=== PATIENT | female | born 1950 | race Two or more races ===

== ENCOUNTER 2018-11-16 13:17 | Emergency (ER) | payer MEDICARE, BC ==
[~2018-11-16] VITALS: Ht 162.6 cm; Wt 57.2 kg
[2018-11-16 13:40] VITALS: BP 135/74
== END 2018-11-16 14:28 | disposition home or self-care (01) ==
LOC: ER 13:17
DX: H15.102 Unspecified episcleritis, left eye (principal); E04.9 Nontoxic goiter, unspecified; Z90.710 Acquired absence of both cervix and uterus; Z88.8 Allergy status to other drugs, medicaments and biological substances; Z60.2 Problems related to living alone

== ENCOUNTER 2020-04-08 00:44 | Inpatient (IN) | payer BC, MEDICARE ==
[~2020-04-08] VITALS: Ht 162.6 cm; Wt 59.9 kg
--- NOTE | 2020-04-08 01:17 | NUR ---
BLOOD COLLECTED AND SENT TO THE LAB WITH PICKING BELT OPERATOR FOR TESTING.
[2020-04-08 01:18] LABS: BASOPHILS # (AUTO) 0.1 /CMM (0.0-0.2); BASOPHILS % (AUTO) 1.2 % (0.0-2.0); EOSINOPHILS % (AUTO) 10.2 % (0.0-6.0); HEMATOCRIT 41 % (33-45); HEMOGLOBIN 13.4 g/dL (11.5-14.8); LYMPHOCYTES # (AUTO) 1.7 /CMM (0.8-4.8); LYMPHOCYTES % (AUTO) 34.2 % (20.0-44.0); MEAN CORPUSCULAR HGB CONC 32 g/dl (31.0-36.0); MEAN CORPUSCULAR VOLUME 90 fL (82-100); MONOCYTES # (AUTO) 0.6 /CMM (0.1-1.30); MONOCYTES % (AUTO) 11.1 % (2.0-12.0); NEUTROPHILS # (AUTO) 2.2 /CMM (1.8-8.9); NEUTROPHILS % (AUTO) 43.3 % (43.0-81.0); PLATELET COUNT (AUTO) 279 /CMM (150-450); RED BLOOD CELL COUNT(AUTO) 4.63 MIL/uL (4.0-5.2)
[2020-04-08 01:25] LABS: CALCIUM, SERUM 8.7 mg/dL (8.5-10.1); CARBON DIOXIDE 27 mmol/L (21-32); CHLORIDE 106 mmol/L (98-107); CREATININE 0.9 mg/dL (0.6-1.3); GLUCOSE 97 mg/dL (74-106); POTASSIUM 4.2 mmol/L (3.5-5.1); SODIUM SERUM 141 mmol/L (136-145); UREA NITROGEN, BLOOD 21 mg/dL (7-18)
[2020-04-08 01:38] LABS: ALANINE AMINOTRANSFERASE 20 U/L (12-78); ALBUMIN 3.4 g/dL (3.4-5.0); ALKALINE PHOSPHATASE 84 U/L (46-116); ASPARTATE AMINOTRANSFERASE 17 U/L (15-37); B-TYPE NATRIURETIC PEPTIDE 38 PG/ML (0-125); BILIRUBIN,DIRECT 0.1 mg/dL (0.0-0.2); BILIRUBIN,TOTAL 0.2 mg/dL (0.2-1.0); TOTAL PROTEIN, SERUM 7.2 g/dL (6.4-8.2)
--- NOTE | 2020-04-08 02:14 | NUR ---
ER SPOKE TO [facility] [place] REGARDING PT ADMISSION.
--- NOTE | 2020-04-08 02:16 | NUR ---
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 PATIENT IS AAOX4. NO SOB .BREATHING EVENLY AND UNLABORED ON ROOM AIR. CONNECTED TO THE MONITOR.
--- NOTE | 2020-04-08 02:25 | NUR ---
called lab for covid swab
[2020-04-08] MEDS ORDERED: ONDANSETRON HCL/PF 4 MG/2 ML VIAL IVP PRN (02:30)
[2020-04-08] MEDS ORDERED: MAG HYDROX/AL HYDROX/SIMETH 30 ML UDC PO PRN (02:30)
[2020-04-08] MEDS ORDERED: Z GUARD REMEDY 2 OZ OINT TP PRN (02:30)
[2020-04-08] MEDS ORDERED: HYDROCODONE/APAP 5/325MG TABLET PO PRN (02:30)
[2020-04-08] MEDS ORDERED: ASPIRIN 325 MG TABLET PO ONE (02:30)
[2020-04-08] MEDS ORDERED: ZOLPIDEM TARTRATE 5 MG TABLET PO PRN (02:30)
[2020-04-08] MEDS ORDERED: ACETAMINOPHEN 325 MG TABLET PO PRN (02:30)
[2020-04-08] MEDS ORDERED: MAGNESIUM HYDROXIDE 30 ML UDC PO PRN (02:30)
[2020-04-08] MEDS ORDERED: NITROGLYCERIN 0.4 MG/TAB BOTTLE SL PRN (02:30)
[2020-04-08] MEDS ORDERED: ASPIRIN 325 MG TABLET ONE (02:39)
--- NOTE | 2020-04-08 02:39 | NUR ---
Omari ray in [facility] - 04/08/20 at 0253 by PHOEBE BRETT Verdugo
--- NOTE | 2020-04-08 03:11 | NUR ---
per lab, covid negative.
--- NOTE | 2020-04-08 03:12 | NUR ---
TELE 104
--- NOTE | 2020-04-08 03:34 | NUR ---
REPORT CALLED TO ANA CRISTINA COSTELLO. WILL TRANSPORT PT VIA ACLS PROTOCOL.
--- NOTE | 2020-04-08 03:39 | NUR ---
PATIENT TAKEN TO ASSIGNED ROOM FOR ARIEL.
[2020-04-08 03:59] VITALS: BP 144/71
[2020-04-08 04:00] VITALS: BP 144/71
--- NOTE | 2020-04-08 06:41 | NUR ---
RN notes Admitted a 70 year old from ER via stretcher with diagnosis of chest pain to rule out ACS. No distress noted. On room air tolerating well. Alert and oriented, verbally able to communicate needs. No complaint of pain or discomfort. Skin intact. Vital signs wnl. Needs attended.Kept clean and dry. Endorsed to next shift for continuity of care.
--- NOTE | 2020-04-08 07:05 | NUR ---
RN OPENING NOTES RECEIVED PT AWAKE, A/O X4. ON ROOM AIR SATURATING @99%. NO SOB OR ANY RESPIRATORY DISTRESS NOTED AT THIS TIME. NO PAIN REPORTED AT THIS TIME. SR ON TELE MONITOR. AMBULATORY. SKIN IS INTACT. CARDIAC DIET. L AC #18 INTACT, PATENT AND FLUSHED. SAFETY MEASURES IMPLEMENTED. CALL LIGHT WITHIN REACH. BED LOCKED AND AT LOWEST POSITION WITH SIDE RAILS UP X2. WILL CONTINUE TO MONITOR
[2020-04-08 08:00] VITALS: BP 155/59
--- NOTE | 2020-04-08 08:40 | NUR ---
RN NOTES MD ORDERED CT ANGIO. CONSENT OBTAINED FROM PT.
[2020-04-08] MEDS ORDERED: METOPROLOL TARTRATE 50 MG TABLET PO ONE (08:45)
[2020-04-08] MEDS ORDERED: ASPIRIN 81 MG TAB.CHEW PO ONE (09:00)
[2020-04-08] MEDS ORDERED: ALPR2TAB7 PO (09:19)
[2020-04-08] MEDS ORDERED: QUET400T PO (09:19)
[2020-04-08] MEDS ORDERED: ALPRAZOLAM 1 MG TABLET PO PRN (09:30)
[2020-04-08] MEDS: QUETIAPINE FUMARATE 100 MG TABLET PO SCH ×2 (09:35→11:54)
[2020-04-08] MEDS ORDERED: IV NS 0.9% 250 ML IV ONE (10:01)
[2020-04-08] MEDS ORDERED: IOHEXOL-350 100 ML VIAL IV ONE (10:01)
[2020-04-08] MEDS ORDERED: CT SWABBABLE VALVE TRANS SET 1 EA INFUS.SET MC ONE (10:01)
--- NOTE | 2020-04-08 10:10 | NUR ---
RN NOTES PT BROUGHT TO SALES SERVICE EXECUTIVE FOR CT ANGIO. PT ON STABLE CONDITION. BP: 132/40, HR: 72.
[2020-04-08] MEDS ORDERED: NITROGLYCERIN 4.9 GM SPRAY ONE (10:23)
[2020-04-08 12:00] VITALS: BP 128/57
[2020-04-08 16:00] VITALS: BP 138/60
--- NOTE | 2020-04-08 19:01 | NUR ---
ANA CRISTINA MEDLEY PT BROUGHT BACK TO ROOM. PT STABLE. VS WNL. Addendum: 04/08/20 at 1902 by CHRISTIAN ZEPEDA RN BROUGHT BACK TO ROOM @ 1050AM
--- NOTE | 2020-04-08 19:02 | NUR ---
RN CLOSING NOTES PT DISCHARGED VIA WHEELCHAIR ACCOMPANIED BY RN TO ER PARKING LOT. DISCHARGE INSTRUCTIONS GIVEN TO PT. VS WNL. LEFT IN STABLE CONDITION
== END 2020-04-08 18:36 | disposition home or self-care (01) | DRG 313 ==
LOC: ER 00:48 → TELE1 03:26
PROVIDERS: ADMIT Internal Medicine; ATTEND Internal Medicine
DX: R07.89 Other chest pain (principal); N17.0 Acute kidney failure with tubular necrosis; I16.0 Hypertensive urgency; F32.9 Major depressive disorder, single episode, unspecified; F41.9 Anxiety disorder, unspecified; Z82.49 Family history of ischemic heart disease and other diseases of the circulatory system; Z90.710 Acquired absence of both cervix and uterus
CPT/HCPCS: 36415; 71045-TC; 75574; 80048-TC; 80076-TC; 83880; 84484-TC; 85025-TC; 87081-TC; 93307-TC; C9803; G0378; J7050; Q9967